=== PATIENT | female | born 1990 | race American Indian/Alaskan Native ===

== ENCOUNTER 2021-11-21 10:12 | Emergency (ER) | payer MEDICAID, OTHER ==
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
[2021-11-21] MEDS ORDERED: IBUPROFEN 800 MG TAB PO ONE (17:38)
[2021-11-21] MEDS ORDERED: HYDROcodone/ACETAMINOPHEN 5-325 MG TAB PO ONE (17:38)
[2021-11-21 18:36] VITALS: BP 118/88
== END 2021-11-21 18:36 | disposition home or self-care (01) ==
LOC: ED 10:12
DX: M54.2 Cervicalgia (principal); M54.50 Low back pain, unspecified; M25.511 Pain in right shoulder; V89.2XXA Person injured in unspecified motor-vehicle accident, traffic, initial encounter; Y93.89 Activity, other specified; Y92.89 Other specified places as the place of occurrence of the external cause; Y99.8 Other external cause status
CPT/HCPCS: 99282